=== PATIENT | male | born 1970 | race Caucasian/White ===

== ENCOUNTER 2018-04-08 03:24 | Emergency (ER) | payer SELFPAY ==
[2018-04-08 03:35] VITALS: BP 175/102
[2018-04-08] MEDS ORDERED: cefTRIAXone 1 GM Vial IM ONE (03:45)
[2018-04-08] MEDS ORDERED: Acetaminophen/oxyCODONE 325-5 MG Tab PO ONE (03:45)
[2018-04-08] MEDS ORDERED: Lidocaine 1% 20 ML MDV ONE (03:48)
--- NOTE | 2018-04-08 03:51 | EDM.PDOC ---
ED HPI GENERAL MEDICAL PROBLEM - General Chief Complaint: General Stated Complaint: pimple on testicle Time Seen by Provider: 04/08/18 03:45 Source of Information: Reports: Patient History Limitations: Reports: No Limitations - History of Present Illness INITIAL COMMENTS - FREE TEXT/NARRATIVE: Patient is a 47-year-old gentleman who presents to the emergency department this morning with a complaint of testicular pain. Patient states that he noticed a small pimple 3 days ago on his scrotum and squeezed it. Unable to get any discharge seemed to be enlarging, so he squeezed it again today. Pain became worse and he presented to the emergency department. Patient denies fever , nausea, vomiting, diarrhea, dysuria, abdominal pain, trauma to the testicles, or any history of testicular issues in the past. Onset: Gradual Quality: Reports: Ache Severity: Moderate Improves with: Reports: None Worsens with: Reports: Movement Associated Symptoms: Reports: No Other Symptoms Testicles Pain Score (Numeric/FACES): 10 - Related Data Allergies Allergy/AdvReac Type Severity Reaction Status Date / Time No Known Drug Allergies Allergy Cannot Verified 04/08/18 03:36 Remember Home Meds: Home Meds Sulfamethoxazole/Trimethoprim [Bactrim Ds Tablet] 1 each PO BID #20 tablet 04/08 [Rx] Past Medical History - Past Health History Medical/Surgical History: Denies Medical/Surgical History Endocrine/Metabolic History: Reports: Diabetes, Type II Social & Family History - Tobacco Use Smoking Status *Q: Current Every Day Smoker Years of Tobacco use: 20 Packs/Tins Daily: 0.5 Second Hand Smoke Exposure: No - Caffeine Use Caffeine Use: Reports: Coffee, Energy Drinks, Soda - Alcohol Use Days Per Week of Alcohol Use: 1 Number of Drinks Per Day: 2 Total Drinks Per Week: 2 - Recreational Drug Use Recreational Drug Use: No ED ROS GENERAL - Review of Systems Review Of Systems: ROS reveals no pertinent complaints other than HPI. Constitutional: Reports: No Symptoms HEENT: Reports: No Symptoms Respiratory: Reports: No Symptoms Cardiovascular: Reports: No Symptoms Endocrine: Reports: No Symptoms GI/Abdominal: Reports: No Symptoms : Reports: Other (Scrotal pain.) Musculoskeletal: Reports: No Symptoms Skin: Reports: Other (Mass on scrotum) Neurological: Reports: No Symptoms Psychiatric: Reports: No Symptoms Hematologic/Lymphatic: Reports: No Symptoms Immunologic: Reports: No Symptoms ED EXAM, GENERAL - Physical Exam Exam: See Below Exam Limited By: No Limitations General Appearance: Alert, WD/WN, No Apparent Distress Throat/Mouth: Normal Inspection, Normal Oropharynx, No Airway Compromise Head: Atraumatic, Normocephalic Respiratory/Chest: No Respiratory Distress GI/Abdominal: Normal Bowel Sounds, Soft, Non-Tender Back Exam: Normal Inspection. No: CVA Tenderness (L), CVA Tenderness (R) Extremities: Normal Inspection Neurological: Alert, Oriented, Normal Cognition Psychiatric: Normal Affect, Normal Mood Skin Exam: Warm, Dry, Intact, Normal Color, No Rash, Other (Scrotal mass measuring 1.5 cm oval with central punctum. No testicular tenderness, or epididymal tenderness.) Lymphatic: No Adenopathy (Inguinal) Course - Vital Signs Last Recorded V/S: Last Vital Signs Temp 98.5 F 04/08/18 03:32 Pulse 95 04/08/18 03:32 Resp 20 04/08/18 03:32 BP 175/102 H 04/08/18 03:32 Pulse Ox 97 04/08/18 03:32 - Orders/Labs/Meds Orders: Active Orders 24 hr Category Date Time Status Acetaminophen/oxyCODONE [Percocet 325-5 MG] Med 04/08/18 03:45 Once 2 tab PO ONETIME ONE cefTRIAXone [Rocephin] Med 04/08/18 03:45 Once 1 gm IM ONETIME ONE - Re-Assessments/Exams Free Text/Narrative Re-Assessment/Exam: 04/08/18 03:51 Patient afebrile, nontoxic appearing, vital signs stable. Patient given 1 g IM Rocephin, Percocet, and prescription for Bactrim. Ultrasound is not available at this time for evaluation of scrotal mass to differentiate infectious process versus other etiology. It is recommended to the patient that he present to [facility] tomorrow to see if ultrasound is available, or present to emergency department at [facility] for further evaluation. Departure - Departure Time of Disposition: 03:54 Disposition: Home, Self-Care 01 Condition: Good Clinical Impression: Scrotal abscess - Discharge Information Instructions: Skin Abscess, [id number], Scrotal Masses Referrals: Sona Ghotra MD [Physician] - Additional Instructions: Follow-up at [facility] tomorrow. If unable to get ultrasound performed then proceeded to [facility] in [place] for evaluation. Return to emergency department if other options are not available. - My Orders Last 24 Hours: My Active Orders 04/08/18 03:45 Acetaminophen/oxyCODONE [Percocet 325-5 MG] 2 tab PO ONETIME ONE cefTRIAXone [Rocephin] 1 gm IM ONETIME ONE - Assessment/Plan Last 24 Hours: My Active Orders 04/08/18 03:45 Acetaminophen/oxyCODONE [Percocet 325-5 MG] 2 tab PO ONETIME ONE cefTRIAXone [Rocephin] 1 gm IM ONETIME ONE Assessment:: Scrotal mass Plan: Follow-up at [facility]
== END 2018-04-08 04:03 | disposition home or self-care (01) ==
LOC: KA.ED 03:24
DX: N49.2 Inflammatory disorders of scrotum (principal); E11.9 Type 2 diabetes mellitus without complications; F17.210 Nicotine dependence, cigarettes, uncomplicated
CPT/HCPCS: 96372; 99282; A9270-GY; J0696

== ENCOUNTER 2019-07-13 12:03 | Observation (INO) | payer MEDICAID ==
[2019-07-13] MEDS ORDERED: Piperacillin/Tazobactam/Dext 3.375 GM in Premix Bag 1 BAG IV SCH (13:00)
[2019-07-13] MEDS ORDERED: Ibuprofen 600 MG Tab PO PRN (13:12)
[2019-07-13 13:35] LABS: ANION GAP 15.6 mmol/L (5-15); CHLORIDE,CL 97 mmol/L (98-115); SODIUM,NA 133 mmol/L (136-145)
--- NOTE | 2019-07-13 13:40 | CR ---
[id number] RAD/RAD Chest PA And Lateral EXAM: RAD Chest PA And Lateral CLINICAL DATA: TACHYCARDIA COMPARISON: No previous similar exam is available. FINDINGS: The lungs are clear. The cardiomediastinal contour is normal. The regional bones and soft tissues are unremarkable. IMPRESSION: NO ACUTE PROCESS. Mustapha Cannon MD 07/13/19 [id number] Thank you for allowing us to participate in the care of your patient.
[2019-07-13] MEDS: Insulin Aspart 100 Units/ML 3 ML Pen SUBCUT SCH ×3 (13:43→21:36)
[2019-07-13] MEDS: Sodium Chloride 0.9% 1,000 ML IV SCH ×2 (14:48→21:50)
[2019-07-13] MEDS: Piperacillin/Tazobactam/Dext 3.375 GM in Premix Bag 1 BAG IV SCH ×2 (14:52→21:33)
[2019-07-13] MEDS: prednisoLONE Acetate 1% Ophth Susp 5 ML Bottle EYERT SCH ×3 (15:01→21:36)
[2019-07-13] MEDS: Nicotine 21 MG/24 Hr Patch TRDERM SCH (16:41)
[2019-07-13] MEDS: metFORMIN 500 MG Tab PO SCH (18:15)
[2019-07-13] MEDS: traMADol 50 MG Tab PO PRN (19:05)
[2019-07-13] MEDS ORDERED: Timolol Maleate 0.5% Ophth Soln 5 ML Bottle EYERT SCH (21:00)
[2019-07-13] MEDS ORDERED: Atropine 1% Ophth Soln 5 ML BOTTLE EYERT SCH (21:00)
[2019-07-14] MEDS: prednisoLONE Acetate 1% Ophth Susp 5 ML Bottle EYERT SCH ×6 (02:09→20:28)
[2019-07-14] MEDS: Piperacillin/Tazobactam/Dext 3.375 GM in Premix Bag 1 BAG IV SCH ×4 (02:54→20:25)
[2019-07-14] MEDS: Sodium Chloride 0.9% 1,000 ML IV SCH ×3 (04:22→20:23)
[2019-07-14] MEDS: traMADol 50 MG Tab PO PRN ×3 (06:19→22:04)
[2019-07-14] MEDS ORDERED: prednisoLONE Acetate 1% Ophth Susp 5 ML Bottle EYERT SCH (08:00)
[2019-07-14 08:08] LABS: ANION GAP 13.7 mmol/L (5-15); CHLORIDE,CL 101 mmol/L (98-115); SODIUM,NA 136 mmol/L (136-145)
[2019-07-14] MEDS: Insulin Aspart 100 Units/ML 3 ML Pen SUBCUT SCH ×6 (08:09→22:15)
[2019-07-14] MEDS: metFORMIN 500 MG Tab PO SCH ×2 (08:27→18:20)
[2019-07-14] MEDS: Nicotine 21 MG/24 Hr Patch TRDERM SCH (08:43)
[2019-07-14] MEDS: ATROPINE 1% EYERT SCH (08:46)
[2019-07-14] MEDS: Timolol Maleate 0.5% Ophth Soln 5 ML Bottle**OWN MED EYERT SCH ×2 (08:51→20:50)
[2019-07-14] MEDS: BRIMONIDINE 0.2% EYERT SCH ×2 (08:56→20:40)
[2019-07-14] MEDS ORDERED: ATROPINE 1% EYERT SCH (09:00)
[2019-07-14] MEDS ORDERED: Timolol Maleate 0.5% Ophth Soln 5 ML Bottle**OWN MED EYERT SCH (09:00)
[2019-07-14] MEDS ORDERED: BRIMONIDINE 0.2% EYERT SCH (09:00)
[2019-07-14] MEDS ORDERED: Atropine 1% Ophth Soln 5 ML BOTTLE EYERT SCH (09:00)
[2019-07-14] MEDS ORDERED: cefTRIAXone 1 GM Vial IVPUSH SCH (10:00)
--- NOTE | 2019-07-14 11:12 | PCM.PN ---
- General Info Date of Service: 07/14/19 Functional Status: Reports: Pain Controlled, Tolerating Diet. Denies: New Symptoms - Review of Systems General: Denies: Fever HEENT: Reports: No Symptoms Pulmonary: Reports: No Symptoms Cardiovascular: Reports: No Symptoms Gastrointestinal: Reports: No Symptoms Genitourinary: Reports: No Symptoms Musculoskeletal: Reports: No Symptoms Skin: Reports: Other (rectal abscess draining) Neurological: Reports: No Symptoms - Patient Data Vitals - Most Recent: Last Vital Signs Temp 97.7 F 07/14/19 06:59 Pulse 92 07/14/19 06:59 Resp 20 07/14/19 06:59 BP 134/85 07/14/19 06:59 Pulse Ox 95 07/14/19 06:59 Weight - Most Recent: 240 lb 11.2 oz I&O - Last 24 Hours: Intake & Output 07/13/19 07/14/19 07/14/19 22:59 06:59 14:59 Intake Total 1603 1733 Balance 1603 1733 Lab Results Last 24 Hours: Laboratory Results - last 24 hr 07/13/19 07/13/19 07/13/19 Range/Units 12:33 13:05 13:05 WBC 23.42 H (5.00-10.00) 10^3/uL RBC 4.74 (4.50-6.00) 10^6/uL Hgb 15.4 (13.0-17.0) g/dL Hct 43.1 (40.0-52.0) % MCV 90.9 (82.0-92.0) fL MCH 32.5 H (27.0-31.0) pg MCHC 35.7 (32.0-36.0) g/dL RDW 11.9 (11.5-14.5) % Plt Count 271 (150-400) 10^3/uL MPV 9.0 (7.4-10.4) fL Immature Gran % (Auto) (0.0-5.0) % Neut % (Auto) (50.0-70.0) % Lymph % (Auto) (20.0-40.0) % [place] % (Auto) (2.0-8.0) % Eos % (Auto) (1.0-3.0) % Baso % (Auto) (0.0-1.0) % Immature Gran # (Auto) (0.00-0.50) 10^3/uL Neut # (Auto) (2.50-7.00) 10^3/uL Lymph # (Auto) (1.00-4.00) 10^3/uL [place] # (Auto) (0.10-0.80) 10^3/uL Eos # (Auto) (0.10-0.30) 10^3/uL Baso # (Auto) (0.00-0.10) 10^3/uL Add Manual Diff Yes Neutrophils % (Manual) 83 H (50-70) % Band Neutrophils % 10 (4-12) % Lymphocytes % (Manual) 6 L (20-40) % Monocytes % (Manual) 1 L (2-8) % Absolute Neutrophils 19.44 Band Neutrophils # 2.34 Lymphocytes # (Manual) 1.41 Monocytes # (Manual) 0.23 Sodium 133 L (136-145) mmol/L Potassium 3.8 (3.3-5.3) mmol/L Chloride 97 L (98-115) mmol/L Carbon Dioxide 24.2 (21.0-32.0) mmol/L Anion Gap 15.6 H (5-15) mmol/L BUN 10 (6-25) mg/dL Creatinine 0.66 (0.51-1.17) mg/dL Est Cr Clr Drug Dosing TNP Estimated GFR (MDRD) > 60 mL/min Glucose 310 H (75 - 99) mg/dL POC Glucose 262 H (74-106) mg/dl Lactic Acid (0.4-2.0) mmol/L Calcium 8.9 (8.7-10.3) mg/dL Total Bilirubin 1.2 H (0.2-1.0) mg/dL AST 23 (15-37) U/L ALT 33 (12-78) U/L Alkaline Phosphatase 98 (46-116) IU/L Total Protein 6.7 (6.4-8.2) g/dL Albumin 3.13 (3.00-4.80) g/dL 07/13/19 07/13/19 07/13/19 Range/Units 13:05 18:07 21:32 WBC (5.00-10.00) 10^3/uL RBC (4.50-6.00) 10^6/uL Hgb (13.0-17.0) g/dL Hct (40.0-52.0) % MCV (82.0-92.0) fL MCH (27.0-31.0) pg MCHC (32.0-36.0) g/dL RDW (11.5-14.5) % Plt Count (150-400) 10^3/uL MPV (7.4-10.4) fL Immature Gran % (Auto) (0.0-5.0) % Neut % (Auto) (50.0-70.0) % Lymph % (Auto) (20.0-40.0) % [place] % (Auto) (2.0-8.0) % Eos % (Auto) (1.0-3.0) % Baso % (Auto) (0.0-1.0) % Immature Gran # (Auto) (0.00-0.50) 10^3/uL Neut # (Auto) (2.50-7.00) 10^3/uL Lymph # (Auto) (1.00-4.00) 10^3/uL [place] # (Auto) (0.10-0.80) 10^3/uL Eos # (Auto) (0.10-0.30) 10^3/uL Baso # (Auto) (0.00-0.10) 10^3/uL Add Manual Diff Neutrophils % (Manual) (50-70) % Band Neutrophils % (4-12) % Lymphocytes % (Manual) (20-40) % Monocytes % (Manual) (2-8) % Absolute Neutrophils Band Neutrophils # Lymphocytes # (Manual) Monocytes # (Manual) Sodium (136-145) mmol/L Potassium (3.3-5.3) mmol/L Chloride (98-115) mmol/L Carbon Dioxide (21.0-32.0) mmol/L Anion Gap (5-15) mmol/L BUN (6-25) mg/dL Creatinine (0.51-1.17) mg/dL Est Cr Clr Drug Dosing Estimated GFR (MDRD) mL/min Glucose (75 - 99) mg/dL POC Glucose 253 H 170 H (74-106) mg/dl Lactic Acid 2.7 H (0.4-2.0) mmol/L Calcium (8.7-10.3) mg/dL Total Bilirubin (0.2-1.0) mg/dL AST (15-37) U/L ALT (12-78) U/L Alkaline Phosphatase (46-116) IU/L Total Protein (6.4-8.2) g/dL Albumin (3.00-4.80) g/dL 07/14/19 07/14/19 07/14/19 Range/Units 07:25 07:25 07:57 WBC 14.69 H (5.00-10.00) 10^3/uL RBC 4.33 L (4.50-6.00) 10^6/uL Hgb 14.4 (13.0-17.0) g/dL Hct 39.8 L (40.0-52.0) % MCV 91.9 (82.0-92.0) fL MCH 33.3 H (27.0-31.0) pg MCHC 36.2 H (32.0-36.0) g/dL RDW 12.0 (11.5-14.5) % Plt Count 250 (150-400) 10^3/uL MPV 9.0 (7.4-10.4) fL Immature Gran % (Auto) 0.2 (0.0-5.0) % Neut % (Auto) 80.8 H (50.0-70.0) % Lymph % (Auto) 11.5 L (20.0-40.0) % [place] % (Auto) 5.5 (2.0-8.0) % Eos % (Auto) 1.8 (1.0-3.0) % Baso % (Auto) 0.2 (0.0-1.0) % Immature Gran # (Auto) 0.03 (0.00-0.50) 10^3/uL Neut # (Auto) 11.87 H (2.50-7.00) 10^3/uL Lymph # (Auto) 1.69 (1.00-4.00) 10^3/uL [place] # (Auto) 0.81 H (0.10-0.80) 10^3/uL Eos # (Auto) 0.26 (0.10-0.30) 10^3/uL Baso # (Auto) 0.03 (0.00-0.10) 10^3/uL Add Manual Diff Neutrophils % (Manual) (50-70) % Band Neutrophils % (4-12) % Lymphocytes % (Manual) (20-40) % Monocytes % (Manual) (2-8) % Absolute Neutrophils Band Neutrophils # Lymphocytes # (Manual) Monocytes # (Manual) Sodium 136 (136-145) mmol/L Potassium 4.0 (3.3-5.3) mmol/L Chloride 101 (98-115) mmol/L Carbon Dioxide 25.3 (21.0-32.0) mmol/L Anion Gap 13.7 (5-15) mmol/L BUN 6 (6-25) mg/dL Creatinine 0.63 (0.51-1.17) mg/dL Est Cr Clr Drug Dosing 168.53 Estimated GFR (MDRD) > 60 mL/min Glucose 170 H (75 - 99) mg/dL POC Glucose 151 H (74-106) mg/dl Lactic Acid (0.4-2.0) mmol/L Calcium 8.4 L (8.7-10.3) mg/dL Total Bilirubin 0.8 (0.2-1.0) mg/dL AST 32 (15-37) U/L ALT 46 (12-78) U/L Alkaline Phosphatase 86 (46-116) IU/L Total Protein 6.1 L (6.4-8.2) g/dL Albumin 2.67 L (3.00-4.80) g/dL Med Orders - Current: Current Medications Ceftriaxone Sodium (Rocephin) 1 gm IVPUSH Q24H [facility] Sodium Chloride (Normal Saline) 1,000 mls @ 150 mls/hr IV ASDIRECTED [facility] Last Admin: 07/14/19 04:22 Dose: 150 mls/hr Piperacillin/Tazobactam/ (Dextrose 3.375 gm/ Premix) 50 mls @ 100 mls/hr IV Q6H [facility] Last Admin: 07/14/19 08:33 Dose: 100 mls/hr Ibuprofen (Motrin) 600 mg PO Q6H PRN PRN Reason: Pain/Fever Insulin Aspart (Novolog) 0 unit SUBCUT WITHMEALSANDBED [facility]; Protocol Last Admin: 07/14/19 08:09 Dose: Not Given Metformin HCl (Glucophage) 1,000 mg PO BIDMEALS [facility] Last Admin: 07/14/19 08:27 Dose: 1,000 mg Nicotine (Habitrol) 21 mg TRDERM DAILY [facility] Last Admin: 07/14/19 08:43 Dose: Not Given Atropine 1% Ophth Soln 5 Ml Bottle Own Med 0 each EYERT DAILY [facility] Last Admin: 07/14/19 08:46 Dose: 1 each Timolol Maleate 0.5% Ophth Soln 5 Ml BottleOwn Med 0 each EYERT BID [facility] Last Admin: 07/14/19 08:51 Dose: 1 each Brimonidine 0.2% Ophth Soln 15 Ml BottleOwn Med 0 each EYERT BID [facility] Last Admin: 07/14/19 08:56 Dose: 1 each Prednisolone Acetate (Pred Forte 1% Ophth Susp) 0 ml EYERT 0800,1200,1600,2000 [facility] Last Admin: 07/14/19 08:30 Dose: 1 drop Tramadol HCl (Ultram) 50 mg PO Q6H PRN PRN Reason: Pain Last Admin: 07/14/19 06:19 Dose: 50 mg Discontinued Medications Atropine Sulfate (Atropine 1% Ophth Soln) 0 ml EYERT BID [facility] Atropine Sulfate (Atropine 1% Ophth Soln) 1 ml EYERT DAILY [facility] Atropine Sulfate (Atropine 1% Ophth Soln) 0 ml EYERT DAILY [facility] Brimonidine Tartrate (Brimonidine Tartrate 0.2% Ophth Soln) 0 ml EYERT BID [facility] Doxycycline Hyclate (Vibramycin) 100 mg PO BID [facility] Last Admin: 07/14/19 09:16 Dose: Not Given Piperacillin/Tazobactam/ (Dextrose 3.375 gm/ Premix) 50 mls @ 100 mls/hr IV Q6H [facility] Last Admin: 07/13/19 15:22 Dose: Not Given Prednisolone Acetate (Pred Forte 1% Ophth Susp) 0 ml EYERT Q4H [facility] Last Admin: 07/14/19 06:11 Dose: Not Given Prednisolone Acetate (Pred Forte 1% Ophth Susp) 0 ml EYERT Q4H [facility] Last Admin: 07/14/19 08:57 Dose: Not Given Timolol Maleate (Timoptic 0.5% Ophth Soln) 0 ml EYERT BID [facility] Last Admin: 07/13/19 21:45 Dose: 1 drop Timolol Maleate (Timoptic 0.5% Ophth Soln) 0 ml EYERT BID CRISTIN - Exam Quality Assessment: No: Supplemental Oxygen General: Alert, Oriented, Cooperative, No Acute Distress Lungs: Clear to Auscultation, Normal Respiratory Effort Cardiovascular: Regular Rate, Regular Rhythm Skin: Other (Drainage rectal abcess, nontender induration 3 o'clock position) - Problem List Review Problem List Initiated/Reviewed/Updated: Yes - Plan Plan:: brief history/prehospital course 48 y/o male and was admitted from [facility] for IV antibiotics status post I&D. patient initially presented with painful lump to his right upper buttocks. Although he denied home fevers, he did admit to rigors and chills. Patient with hx of abscess to his scrotum ~ 2 years ago that was also drained. he is a type 2 diabetic and a smoker. Upon initial I&D wound culture was obtained, 1g of ceftriaxone prior to admission and BC were drawn upon arrival. He was started on broad-spectrum antibiotics, mild lactate elevation, BP/MAP good, no fevers, WBC relation with neutrophilia. ultrasound 4.4 cm maximum diameter complex heterogeneous collection within the subcutaneous tissues in the right medial buttock. Differential diagnosis includes phlegmon/abscess and less likely hematoma. There is no sonographic evidence of a tract to suggest fistula. update overnight WBC rending down, neutrophils 80%, feels much better, strongly desires to be discharged, wound culture insufficient growth after overnight incubation, Culture was re-incubated. Primary hospital problems Rectal abscess, s/p drainage, sepsis, T2DM, co-Morbid, immunocompromising, A1c 10.6% March/2018, metformin tobacco dependency, non-contemplate change, delayed wound healing risk, BMI 33% disposition/overall plan --patient reluctantly agreed to stay for further tx and OBS --continue broad abx therapy, --DC ceftriaxone --DC doxycycline --Sitz bath's --Hgb A1c to aid in DM outpatient mgt especially in light of current DOT medical card --ADD NovoLog 4 units CRISTIN prior to meal, then reduce ISS to low-dose and use as ADDITION corrective scale --tobacco cessation counseling, nicotine replacement therapy --anticipate discharge in a.m.
[2019-07-14 11:42] LABS: HEMOGLOBIN A1C 9.9 % (4.3-5.7)
[2019-07-15] MEDS: Piperacillin/Tazobactam/Dext 3.375 GM in Premix Bag 1 BAG IV SCH ×2 (02:37→08:01)
[2019-07-15] MEDS: Sodium Chloride 0.9% 1,000 ML IV SCH (04:32)
[2019-07-15] MEDS: metFORMIN 500 MG Tab PO SCH (07:58)
[2019-07-15] MEDS: prednisoLONE Acetate 1% Ophth Susp 5 ML Bottle EYERT SCH (07:58)
[2019-07-15] MEDS: Insulin Aspart 100 Units/ML 3 ML Pen SUBCUT SCH ×2 (07:59→08:04)
[2019-07-15] MEDS: ATROPINE 1% EYERT SCH (08:04)
[2019-07-15] MEDS: Nicotine 21 MG/24 Hr Patch TRDERM SCH (08:08)
[2019-07-15] MEDS: Timolol Maleate 0.5% Ophth Soln 5 ML Bottle**OWN MED EYERT SCH (08:10)
[2019-07-15] MEDS: BRIMONIDINE 0.2% EYERT SCH (08:15)
--- NOTE | 2019-07-15 11:07 | PCM.DCSUM1 ---
Discharge Summary - Hospital Course Free Text/Narrative:: Date of admission: 07/13/19 Date of discharge: 07/15/19 Admission diagnoses: # Perirectal abscess # Leukocytosis # Tachycardia # Rigors # DMT2 # Tobacco dependence Discharge diagnoses: # Perirectal abscess # Leukocytosis, resolved # Lactic acidosis, resolved # Tachycardia, resolved # Hyponatremia, resolved # Hyperbilirubinemia, resolved # DMT2, uncontrolled # Tobacco dependence Consultations: None Procedures: None Hospital course: Discharge and follow-up recommendations: - Discharge to home - New medications at discharge: - Augmentin 875-125mg BID x 10 days - Exenatide 2mg SQ weekly - Follow-up 07/19/[address] [facility] with Dallas Garg PA-C, as already scheduled - Discharge Data Discharge Date: 07/15/19 Discharge Disposition: Home, Self-Care 01 Condition: Good - Referral to Home Health Primary Care Physician: PCP None - Patient Instructions Diet: Diabetic Diet Activity: As Tolerated Showering/Bathing: May Shower Wound/Incision Care: Keep Operative Site/Wound Site Clean and Dry, Change Dressing Daily Notify Provider of: Fever, Increased Pain, Swelling and Redness Other/Special Instructions: - Augmentin 875/125mg twice daily for 10 days (sent to [employer] [facility] from [employer]). - Semgalutide (Ozempic) 0.25mg subcutaneous once weekly for 4 weeks, then 0.5mg subctuaneous once weekly (sent to [employer] [facility] from [employer]) - Discharge Plan *PRESCRIPTION DRUG MONITORING PROGRAM REVIEWED*: Yes *COPY OF PRESCRIPTION DRUG MONITORING REPORT IN PATIENT LINH: Yes Home Medications: Home Meds Atropine Sulfate [Isopto Atropine] 1 drop EYERT DAILY 07/13/19 [History] Brimonidine Tartrate [Brimonidine Tartrate 0.2% Ophth Soln] 1 drop EYERT BID 12/27 [History] Timolol Maleate 1 drop EYERT BID 07/13/19 [History] metFORMIN [Glucophage] 1,000 mg PO BIDMEALS 07/13/19 [History] prednisoLONE acetate [Pred Forte 1% Ophth Susp] 1 drop EYERT 0800,1200,1600, 2000 07/13/19 [History] Patient Handouts: Smoking Tobacco Information, Adult, Type 2 Diabetes Mellitus , Self Care, Adult, Perirectal Abscess Referrals: Dallas Garg PA-C [Physician Electric Truck Driver] - 07/19/19 4:30 pm (Already scheduled) - Discharge Summary/Plan Comment DC Time >30 min.: Yes - Patient Data Vitals - Most Recent: Last Vital Signs Temp 36.2 C 07/15/19 06:21 Pulse 79 07/15/19 06:21 Resp 14 07/15/19 06:21 BP 136/85 07/15/19 06:21 Pulse Ox 96 07/15/19 06:21 Weight - Most Recent: 109.18 kg I&O - Last 24 hours: Intake & Output 07/14/19 07/15/19 07/15/19 22:59 06:59 14:59 Intake Total 2299 1850 Balance 2299 1850 Lab Results - Last 24 hrs: Laboratory Results - last 24 hr 07/14/19 07/14/19 07/14/19 Range/Units 07:25 11:56 17:54 WBC (5.00-10.00) 10^3/uL RBC (4.50-6.00) 10^6/uL Hgb (13.0-17.0) g/dL Hct (40.0-52.0) % MCV (82.0-92.0) fL MCH (27.0-31.0) pg MCHC (32.0-36.0) g/dL RDW (11.5-14.5) % Plt Count (150-400) 10^3/uL MPV (7.4-10.4) fL Immature Gran % (Auto) (0.0-5.0) % Neut % (Auto) (50.0-70.0) % Lymph % (Auto) (20.0-40.0) % [place] % (Auto) (2.0-8.0) % Eos % (Auto) (1.0-3.0) % Baso % (Auto) (0.0-1.0) % Immature Gran # (Auto) (0.00-0.50) 10^3/uL Neut # (Auto) (2.50-7.00) 10^3/uL Lymph # (Auto) (1.00-4.00) 10^3/uL [place] # (Auto) (0.10-0.80) 10^3/uL Eos # (Auto) (0.10-0.30) 10^3/uL Baso # (Auto) (0.00-0.10) 10^3/uL POC Glucose 214 H 142 H (74-106) mg/dl Hemoglobin A1c 9.9 H (4.3-5.7) % Lactic Acid (0.4-2.0) mmol/L 07/14/19 07/15/19 07/15/19 Range/Units 22:02 07:00 07:00 WBC 9.62 (5.00-10.00) 10^3/uL RBC 4.56 (4.50-6.00) 10^6/uL Hgb 14.9 (13.0-17.0) g/dL Hct 41.9 (40.0-52.0) % MCV 91.9 (82.0-92.0) fL MCH 32.7 H (27.0-31.0) pg MCHC 35.6 (32.0-36.0) g/dL RDW 11.9 (11.5-14.5) % Plt Count 286 (150-400) 10^3/uL MPV 9.3 (7.4-10.4) fL Immature Gran % (Auto) 0.3 (0.0-5.0) % Neut % (Auto) 61.1 (50.0-70.0) % Lymph % (Auto) 24.4 (20.0-40.0) % [place] % (Auto) 10.2 H (2.0-8.0) % Eos % (Auto) 3.6 H (1.0-3.0) % Baso % (Auto) 0.4 (0.0-1.0) % Immature Gran # (Auto) 0.03 (0.00-0.50) 10^3/uL Neut # (Auto) 5.87 (2.50-7.00) 10^3/uL Lymph # (Auto) 2.35 (1.00-4.00) 10^3/uL [place] # (Auto) 0.98 H (0.10-0.80) 10^3/uL Eos # (Auto) 0.35 H (0.10-0.30) 10^3/uL Baso # (Auto) 0.04 (0.00-0.10) 10^3/uL POC Glucose 215 H (74-106) mg/dl Hemoglobin A1c (4.3-5.7) % Lactic Acid 1.0 (0.4-2.0) mmol/L 07/15/19 Range/Units 07:32 WBC (5.00-10.00) 10^3/uL RBC (4.50-6.00) 10^6/uL Hgb (13.0-17.0) g/dL Hct (40.0-52.0) % MCV (82.0-92.0) fL MCH (27.0-31.0) pg MCHC (32.0-36.0) g/dL RDW (11.5-14.5) % Plt Count (150-400) 10^3/uL MPV (7.4-10.4) fL Immature Gran % (Auto) (0.0-5.0) % Neut % (Auto) (50.0-70.0) % Lymph % (Auto) (20.0-40.0) % [place] % (Auto) (2.0-8.0) % Eos % (Auto) (1.0-3.0) % Baso % (Auto) (0.0-1.0) % Immature Gran # (Auto) (0.00-0.50) 10^3/uL Neut # (Auto) (2.50-7.00) 10^3/uL Lymph # (Auto) (1.00-4.00) 10^3/uL [place] # (Auto) (0.10-0.80) 10^3/uL Eos # (Auto) (0.10-0.30) 10^3/uL Baso # (Auto) (0.00-0.10) 10^3/uL POC Glucose 145 H (74-106) mg/dl Hemoglobin A1c (4.3-5.7) % Lactic Acid (0.4-2.0) mmol/L АННА Results - Last 24 hrs: Microbiology 07/13/19 13:25 Aerobic Blood Culture - Preliminary Blood - Venous - Lab Draw NO GROWTH AFTER 1 DAY Anaerobic Blood Culture - Preliminary NO GROWTH AFTER 1 DAY Med Orders - Current: Current Medications Sodium Chloride (Normal Saline) 1,000 mls @ 150 mls/hr IV ASDIRECTED [facility] Last Admin: 07/15/19 04:32 Dose: 150 mls/hr Piperacillin/Tazobactam/ (Dextrose 3.375 gm/ Premix) 50 mls @ 100 mls/hr IV Q6H [facility] Last Admin: 07/15/19 08:01 Dose: 100 mls/hr Ibuprofen (Motrin) 600 mg PO Q6H PRN PRN Reason: Pain/Fever Insulin Aspart (Novolog) 0 unit SUBCUT WITHMEALSANDBED [facility]; Protocol Last Admin: 07/15/19 07:59 Dose: Not Given Insulin Aspart (Novolog) 4 unit SUBCUT TIDMEALS [facility] Last Admin: 07/15/19 08:04 Dose: 4 units Metformin HCl (Glucophage) 1,000 mg PO BIDMEALS [facility] Last Admin: 07/15/19 07:58 Dose: 1,000 mg Nicotine (Habitrol) 21 mg TRDERM DAILY [facility] Last Admin: 07/15/19 08:08 Dose: Not Given Atropine 1% Ophth Soln 5 Ml Bottle Own Med 0 each EYERT DAILY [facility] Last Admin: 07/15/19 08:04 Dose: 1 each Timolol Maleate 0.5% Ophth Soln 5 Ml BottleOwn Med 0 each EYERT BID [facility] Last Admin: 07/15/19 08:10 Dose: 1 each Brimonidine 0.2% Ophth Soln 15 Ml BottleOwn Med 0 each EYERT BID [facility] Last Admin: 07/15/19 08:15 Dose: 1 each Prednisolone Acetate (Pred Forte 1% Ophth Susp) 0 ml EYERT 0800,1200,1600,2000 [facility] Last Admin: 07/15/19 07:58 Dose: 1 drop Tramadol HCl (Ultram) 50 mg PO Q6H PRN PRN Reason: Pain Last Admin: 07/14/19 22:04 Dose: 50 mg Discontinued Medications Atropine Sulfate (Atropine 1% Ophth Soln) 0 ml EYERT BID [facility] Atropine Sulfate (Atropine 1% Ophth Soln) 1 ml EYERT DAILY [facility] Atropine Sulfate (Atropine 1% Ophth Soln) 0 ml EYERT DAILY [facility] Brimonidine Tartrate (Brimonidine Tartrate 0.2% Ophth Soln) 0 ml EYERT BID [facility] Ceftriaxone Sodium (Rocephin) 1 gm IVPUSH Q24H [facility] Last Admin: 07/14/19 10:40 Dose: 1 gm Doxycycline Hyclate (Vibramycin) 100 mg PO BID [facility] Last Admin: 07/14/19 09:16 Dose: Not Given Piperacillin/Tazobactam/ (Dextrose 3.375 gm/ Premix) 50 mls @ 100 mls/hr IV Q6H [facility] Last Admin: 07/13/19 15:22 Dose: Not Given Prednisolone Acetate (Pred Forte 1% Ophth Susp) 0 ml EYERT Q4H [facility] Last Admin: 07/14/19 06:11 Dose: Not Given Prednisolone Acetate (Pred Forte 1% Ophth Susp) 0 ml EYERT Q4H [facility] Last Admin: 07/14/19 08:57 Dose: Not Given Timolol Maleate (Timoptic 0.5% Ophth Soln) 0 ml EYERT BID [facility] Last Admin: 07/13/19 21:45 Dose: 1 drop Timolol Maleate (Timoptic 0.5% Ophth Soln) 0 ml EYERT BID [facility]
[2019-07-15 11:51] VITALS: BP 138/76; PULSE 76
== END 2019-07-15 11:40 | disposition home or self-care (01) ==
LOC: KA.MS 12:03
PROVIDERS: ADMIT Physician Assistant; ATTEND Family Medicine
DX: K61.1 Rectal abscess (principal); E87.2 Acidosis; R00.0 Tachycardia, unspecified; E11.9 Type 2 diabetes mellitus without complications; E87.1 Hypo-osmolality and hyponatremia; E80.6 Other disorders of bilirubin metabolism; E66.9 Obesity, unspecified; F17.200 Nicotine dependence, unspecified, uncomplicated; H16.139 Photokeratitis, unspecified eye; Z68.33 Body mass index [BMI] 33.0-33.9, adult; Z79.84 Long term (current) use of oral hypoglycemic drugs
CPT/HCPCS: 36415; 71046; 80053; 82962; 83036; 83605; 85025; 87040; A9270; J0696; J1815; J2543; J7030; 96361; 96365; 96375; 96376; G0378; G0379

== ENCOUNTER 2020-06-12 14:56 | Emergency (ER) | payer SELFPAY ==
--- NOTE | 2020-06-12 15:14 | EDM.PDOC ---
<Bakari Frederick - Last Filed: 06/12/20 16:02> ED HPI GENERAL MEDICAL PROBLEM - General Chief Complaint: Neuro Symptoms/Deficits Stated Complaint: TONGUE/LIP L ARM NUMBNESS Time Seen by Provider: 06/12/20 15:12 Source of Information: Reports: Patient History Limitations: Reports: No Limitations - History of Present Illness INITIAL COMMENTS - FREE TEXT/NARRATIVE: Alfred, had a Covid 19 exposure, and was tested last Wednesday still awaiting results. He had traveled to the of his mother, stating he is under significant stress, and found out after returning that his sister was positive COVID-19. He states yesterday morning upon awakening he felt tingling to his left arm. He denies chest pain or shortness of breath with it but states it is been consistent since then. He also feels at times there is tingling in his lips and tongue but denies any speech or thought process issues. Yesterday he had a headache but it resolved spontaneously. He is uncertain of his diabetic control stating he has not been tested in months as he is due this fall for a complete work-up. Denies any hyper nor hypoglycemic events or symptoms. Onset Date: 06/11/20 Onset Time: 06:00 Duration: Hour(s): Location: Reports: Face, Upper Extremity, Left Quality: Reports: Other (tingling) Severity: Moderate Improves with: Reports: None Worsens with: Reports: Movement Context: Reports: Other Associated Symptoms: Reports: No Other Symptoms Treatments POLE CLIMBER: Reports: Other (see below) - Related Data Allergies Allergy/AdvReac Type Severity Reaction Status Date / Time No Known Drug Allergies Allergy Cannot Verified 04/08/18 03:36 Remember Home Meds: Home Meds metFORMIN [Glucophage] 1,000 mg PO BIDMEALS 07/13/19 [History] Dapagliflozin Propanediol [Farxiga] 10 mg PO DAILY 06/12/20 [History] atorvaSTATin Calcium [Atorvastatin Calcium] 10 mg PO DAILY 06/12/20 [History] Past Medical History - Past Health History Medical/Surgical History: Denies Medical/Surgical History HEENT History: Reports: Cataract, Impaired Vision, Retinal Detachment Other HEENT History: Right eye retinal detachment Cardiovascular History: Reports: None, High Cholesterol Respiratory History: Reports: None Gastrointestinal History: Reports: None Genitourinary History: Reports: None Musculoskeletal History: Reports: None, Fracture Neurological History: Reports: None Psychiatric History: Reports: None Endocrine/Metabolic History: Reports: Diabetes, Type II Hematologic History: Reports: None Immunologic History: Reports: None Oncologic (Cancer) History: Reports: None Dermatologic History: Reports: None - Infectious Disease History Infectious Disease History: Reports: None - Past Surgical History Head Surgeries/Procedures: Reports: None HEENT Surgical History: Reports: Cataract Surgery, Detached Retina Cardiovascular Surgical History: Reports: None Respiratory Surgical History: Reports: None GI Surgical History: Reports: None Male Surgical History: Reports: None Neurological Surgical History: Reports: None Musculoskeletal Surgical History: Reports: None Oncologic Surgical History: Reports: None Social & Family History - Family History Family Medical History: Noncontributory - Tobacco Use Smoking Status *Q: Current Every Day Smoker - Caffeine Use Caffeine Use: Reports: Coffee ED ROS GENERAL - Review of Systems Constitutional: Reports: No Symptoms HEENT: Reports: No Symptoms Respiratory: Reports: No Symptoms Cardiovascular: Reports: No Symptoms Endocrine: Reports: No Symptoms GI/Abdominal: Reports: No Symptoms : Reports: No Symptoms Musculoskeletal: Reports: Shoulder Pain Skin: Reports: No Symptoms Neurological: Reports: No Symptoms Psychiatric: Reports: No Symptoms Hematologic/Lymphatic: Reports: No Symptoms Immunologic: Reports: No Symptoms ED EXAM, GENERAL - Physical Exam Exam: See Below Free Text/Narrative:: Alert oriented with no cyanosis nor pallor, seated in the chair in the examination room. HEENT is negative discharge or deformity. 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 Scheduled to have upcoming roselia melvi in September again. Neck is soft supple with no lymphadenopathy, no JVD, I do not appreciate your carotid bruit. Percussion to the cervical spine does not induce any paresthesia. Thorax is clear with raspiness attributed to his smoking. Cardiac is regular S1-S2 no appreciated murmur. Abdomen is rotund no tenderness bowel sounds are present no hepatosplenomegaly appreciated. rectal is deferred. No edema to the extremities radial pulse correlates apical heart rate. Neuro examination is benign with facial symmetry noted, he is able to frown, smile, point his tongue, raises eyebrows and lower his eyebrows all symmetrical with no issues. Ocular exam is intact other than the hesitancy from his pinched nerve on the right. [id number], finger to my hand is intact. Dope Sprayer strength is strong and symmetrical. No pronator drift is noted. No weakness to positioning of the arms are noted. +1 reflexes symmetrical bilateral. Sensation to touch is intact to the upper extremities bilaterally. Heel Islas is intact bilateral. Planter flexion and dorsi flexion are symmetrical. Motion of the left upper extremity across the chest induces discomfort as well as change in sensation and tingling to the extremity. Discussed in detail with positioning his sleeping as well as his stress he is under stress with him stating that that could possibly be what is causing this. EKG INTERPRETATION EKG Date: 06/12/20 Time: 15:45 Rhythm: NSR [place]: Normal P-Wave: Present QRS: Normal ST-T: Normal QT: Normal Comparison: NA - No Prior EKG Departure - Departure Disposition: Home, Self-Care 01 Clinical Impression: Left arm numbness, Elevated troponin, CVA (cerebral vascular accident) - Discharge Information Instructions: Sensory Loss After a Stroke Referrals: Laura Eugene MD [Primary Care Provider] - Forms: ED Department Discharge Additional Instructions: [facility]800 schedule follow up appt. for , tell them Dr. Conley is aware and needs to see someone tomorrow. hold your metformin, do not take the metformin until directed by your doctor. Take full strength aspirin 325 mg by mouth with food once a day, please stop smoking, return to ED right away if you develop any new or changing symptoms. Have a very low threshold on returning and do not wait at home for symptoms to resolve if something would return. - Problem List & Annotations (1) Paresthesia and pain of left extremity SNOMED Code(s): 83596918 Code(s): M79.609 - PAIN IN UNSPECIFIED LIMB; R20.2 - PARESTHESIA OF SKIN Status: Acute Priority: High Current Visit: Yes (2) Shoulder pain, left SNOMED Code(s): 82412623, 32836169 Code(s): M25.512 - PAIN IN LEFT SHOULDER Status: Acute Priority: High Current Visit: Yes Qualifiers: Chronicity: acute Qualified Code(s): M25.512 - Pain in left shoulder - Problem List Review Problem List Initiated/Reviewed/Updated: Yes <Mil Angeles - Last Filed: 06/12/20 17:52> ED ROS GENERAL - Review of Systems Review Of Systems: See Below ED EXAM, GENERAL - Physical Exam Exam: See Below Course - Vital Signs Last Recorded V/S: Last Vital Signs Temp 98.3 F 06/12/20 16:37 Pulse 76 06/12/20 17:24 Resp 16 06/12/20 17:24 BP 144/90 H 06/12/20 17:24 Pulse Ox 97 06/12/20 17:24 - Orders/Labs/Meds Orders: Active Orders 24 hr Category Date Time Status EKG Documentation Completion [RC] ASDIRECTED Care 06/12/20 15:29 Active EKG Documentation Completion [RC] ASDIRECTED Care 06/12/20 17:42 Active Peripheral IV Care [RC] . DIRECTED Care 06/12/20 15:30 Active Sodium Chloride 0.9% [Normal Saline] 1,000 ml Med 06/12/20 15:30 Active IV ASDIRECTED Sodium Chloride 0.9% [Saline Flush] Med 06/12/20 15:30 Active 10 ml FLUSH Q8HR PRN Peripheral IV Insertion Adult [OM.PC] Routine Oth 06/12/20 15:30 Ordered EKG 12 Lead [EK] Stat Ther 06/12/20 17:40 Ordered EKG 12 Lead [EK] Urgent Ther 06/12/20 15:29 Ordered Medication Orders Sodium Chloride (Normal Saline) 1,000 mls @ 500 mls/hr IV ASDIRECTED [facility] Last Admin: 06/12/20 16:10 Dose: 500 mls/hr Documented by: MALEKAT Sodium Chloride (Saline Flush) 10 ml FLUSH Q8HR PRN PRN Reason: keep vein open Labs: Laboratory Tests 06/12/20 06/12/20 06/12/20 Range/Units 15:35 15:35 15:35 WBC 12.98 H (5.00-10.00) 10^3/uL RBC 5.34 (4.50-6.00) 10^6/uL Hgb 16.7 D (13.0-17.0) g/dL Hct 49.3 (40.0-52.0) % MCV 92.3 H (82.0-92.0) fL MCH 31.3 H (27.0-31.0) pg MCHC 33.9 (32.0-36.0) g/dL RDW 12.4 (11.5-14.5) % Plt Count 333 (150-400) 10^3/uL MPV 9.2 (7.4-10.4) fL Immature Gran % (Auto) 0.2 (0.0-5.0) % Neut % (Auto) 60.4 (50.0-70.0) % Lymph % (Auto) 31.0 (20.0-40.0) % [place] % (Auto) 5.9 (2.0-8.0) % Eos % (Auto) 2.3 (1.0-3.0) % Baso % (Auto) 0.2 (0.0-1.0) % Neut # (Auto) 7.82 H (2.50-7.00) 10^3/uL Lymph # (Auto) 4.03 H (1.00-4.00) 10^3/uL [place] # (Auto) 0.77 (0.10-0.80) 10^3/uL Eos # (Auto) 0.30 (0.10-0.30) 10^3/uL Baso # (Auto) 0.03 (0.00-0.10) 10^3/uL Immature Gran # (Auto) 0.03 (0.00-0.50) 10^3/uL PT (9.2-11.2) SEC INR (0.9-1.1) APTT (22.8-31.4) SEC D-Dimer, Quantitative < 100 (<400) ng/mL Sodium 135 L (136-145) mmol/L Potassium 3.7 (3.3-5.3) mmol/L Chloride 100 (98-115) mmol/L Carbon Dioxide 23.2 (21.0-32.0) mmol/L Anion Gap 15.5 H (5-15) mmol/L BUN 8 (6-25) mg/dL Creatinine 0.67 (0.51-1.17) mg/dL Est Cr Clr Drug Dosing 152.38 mL/min Estimated GFR (MDRD) > 60 mL/min Glucose 276 H (75 - 99) mg/dL Lactic Acid (0.4-2.0) mmol/L Calcium 8.7 (8.7-10.3) mg/dL Total Bilirubin 0.4 (0.2-1.0) mg/dL AST 21 (15-37) U/L ALT 43 (12-78) U/L Alkaline Phosphatase 96 (46-116) IU/L Creatine Kinase 9 L (26-276) U/L CK-MB (CK-2) 0.80 (0.00-4.30) ng/mL Troponin I 0.08 H* (0.00-0.070) ng/mL Total Protein 7.0 (6.4-8.2) g/dL Albumin 3.64 (3.00-4.80) g/dL COVID-19 (LEW) (NEGATIVE) 06/12/20 06/12/20 06/12/20 Range/Units 15:35 15:40 16:45 WBC (5.00-10.00) 10^3/uL RBC (4.50-6.00) 10^6/uL Hgb (13.0-17.0) g/dL Hct (40.0-52.0) % MCV (82.0-92.0) fL MCH (27.0-31.0) pg MCHC (32.0-36.0) g/dL RDW (11.5-14.5) % Plt Count (150-400) 10^3/uL MPV (7.4-10.4) fL Immature Gran % (Auto) (0.0-5.0) % Neut % (Auto) (50.0-70.0) % Lymph % (Auto) (20.0-40.0) % [place] % (Auto) (2.0-8.0) % Eos % (Auto) (1.0-3.0) % Baso % (Auto) (0.0-1.0) % Neut # (Auto) (2.50-7.00) 10^3/uL Lymph # (Auto) (1.00-4.00) 10^3/uL [place] # (Auto) (0.10-0.80) 10^3/uL Eos # (Auto) (0.10-0.30) 10^3/uL Baso # (Auto) (0.00-0.10) 10^3/uL Immature Gran # (Auto) (0.00-0.50) 10^3/uL PT 10.1 (9.2-11.2) SEC INR 1.0 (0.9-1.1) APTT 30.1 (22.8-31.4) SEC D-Dimer, Quantitative (<400) ng/mL Sodium (136-145) mmol/L Potassium (3.3-5.3) mmol/L Chloride (98-115) mmol/L Carbon Dioxide (21.0-32.0) mmol/L Anion Gap (5-15) mmol/L BUN (6-25) mg/dL Creatinine (0.51-1.17) mg/dL Est Cr Clr Drug Dosing mL/min Estimated GFR (MDRD) mL/min Glucose (75 - 99) mg/dL Lactic Acid 3.1 H (0.4-2.0) mmol/L Calcium (8.7-10.3) mg/dL Total Bilirubin (0.2-1.0) mg/dL AST (15-37) U/L ALT (12-78) U/L Alkaline Phosphatase (46-116) IU/L Creatine Kinase (26-276) U/L CK-MB (CK-2) (0.00-4.30) ng/mL Troponin I (0.00-0.070) ng/mL Total Protein (6.4-8.2) g/dL Albumin (3.00-4.80) g/dL COVID-19 (LEW) Negative (NEGATIVE) Meds: Medications Generic Name Dose Route Start Last Admin Trade Name Freq PRN Reason Stop Dose Admin Sodium Chloride 1,000 mls @ 500 mls/hr 06/12/20 15:30 06/12/20 16:10 Normal Saline IV 500 mls/hr ASDIRECTED CRISTIN Administration Sodium Chloride 10 ml 06/12/20 15:30 Saline Flush FLUSH Q8HR PRN keep vein open Discontinued Medications Generic Name Dose Route Start Last Admin Trade Name Freq PRN Reason Stop Dose Admin Aspirin 324 mg 06/12/20 17:12 06/12/20 17:21 Aspirin PO 06/12/20 17:13 324 mg ONETIME ONE Administration Atorvastatin Calcium 10 mg 06/12/20 17:12 06/12/20 17:18 Lipitor PO 06/12/20 17:13 Not Given ONETIME ONE - Re-Assessments/Exams Free Text/Narrative Re-Assessment/Exam: 06/12/20 16:35 I accepted care from [facility] now, elevated troponin, just found out negative for covid 19, pt was sent to chest xray. I went into assess patient, he notes having left sided tongue numbness and left upper and bottom lip numbness starting yesterday morning when he woke up at 0700. at 0800, he lit up a cigarette, developed a sudden onset 8/10 headache all day until he went to sleep at 12 pm that night. He has never had this type of headache before, it was severe and sudden. He took [address] with no relief[address] head order stat, aspirin ordered, lipitor he took this am. consulted [facility] [employer] superintendent Dr. Conley. 06/12/20 17:08 repeated neuro exam, no motor function loss, no visual deficits, he does have right eye diplopia, that is his baseline, neg. Romberg , stroke scale 1 for partial loss of sensory, heart score 4 pt. no cp or sob, no viral uri symptoms. BP is 146/92 pulse 87, sp o2 96%. No headache. holding metformin lactic acid 3.1. 06/12/20 17:20 Free Text/Narrative Re-Assessment/Exam: 06/12/20 17:44 I repeated the EKG no signs of STEMI or ST changes or T wave inversion, consulted Dr. Conley after CT head negative report came back. Patient kindly refuses admission despite stressing the importance. He has no motor weakness, I repeated stroke assessment, he does have 1 pt with sensory partial loss, with his upper and bottom left side of his tongue and lips are numb. No weakness to that aspect. No headache, no CP or SOB. Patient was told entire risks for him going instead being admitted for close observation. Such as worsening of stroke, life long paralysis, or even . Patient [place] two blocks from the hospital, he understands to have a low threshold on returning for new or change or worsening of symptoms. he is gong to have close f/u tomorrow am with his PCP at the [facility]. Departure - Departure Time of Disposition: 17:42 Condition: Good - Discharge Information *PRESCRIPTION DRUG MONITORING PROGRAM REVIEWED*: No *COPY OF PRESCRIPTION DRUG MONITORING REPORT IN PATIENT LINH: No Sepsis Event Note (ED) - Focused Exam Vital Signs: Vital Signs Temp Pulse Resp BP Pulse Ox 06/12/20 17:24 76 16 144/90 H 97 06/12/20 16:56 14 146/92 H 97 06/12/20 16:47 92 153/94 H 97 06/12/20 16:37 98.3 F 92 16 146/91 H 94 L 06/12/20 16:15 101 H 162/99 H 96 06/12/20 16:00 99 151/94 H 92 L 06/12/20 15:45 98 16 165/101 H 94 L 06/12/20 15:15 97.7 F 102 H 18 151/98 H 96 - My Orders Last 24 Hours: My Active Orders 06/12/20 17:40 EKG 12 Lead [EK] Stat 06/12/20 17:42 EKG Documentation Completion [RC] ASDIRECTED - Assessment/Plan Last 24 Hours: My Active Orders 06/12/20 17:40 EKG 12 Lead [EK] Stat 06/12/20 17:42 EKG Documentation Completion [RC] ASDIRECTED
[2020-06-12] MEDS ORDERED: Sodium Chloride 0.9% 10 ML Syringe FLUSH PRN (15:30)
[2020-06-12] MEDS ORDERED: Sodium Chloride 0.9% 1,000 ML IV SCH (15:30)
[2020-06-12 16:17] LABS: ANION GAP 15.5 mmol/L (5-15); CHLORIDE,CL 100 mmol/L (98-115); SODIUM,NA 135 mmol/L (136-145)
--- NOTE | 2020-06-12 16:49 | CR ---
[id number] RAD/RAD Chest PA And Lateral EXAM: FRONTAL AND LATERAL CHEST INDICATION: ARM PAIN. COMPARISON: July 13, 2019. DISCUSSION: The heart and lungs are normal in appearance. Mild chronic height loss in a couple of vertebral bodies at the thoracolumbar junction. IMPRESSION: 1. Negative exam. Srikanth Leonardo MD 06/12/20 [id number] Thank you for allowing us to participate in the care of your patient.
[2020-06-12] MEDS ORDERED: atorvaSTATin 10 MG Tab PO ONE (17:12)
[2020-06-12] MEDS ORDERED: Aspirin 81 MG Tab.Chew PO ONE (17:12)
[2020-06-12 17:24] VITALS: BP 144/90; PULSE 76
--- NOTE | 2020-06-12 17:24 | CT ---
[id number] CT/CT Head WO IV EXAM: NONCONTRAST HEAD CT INDICATION: Headache. Tongue and left arm numbness. COMPARISON: None. DISCUSSION: The ventricles and sulci are normal in size and configuration. Mild multifocal white matter hypoattenuation is nonspecific, but generally ascribed to chronic small vessel ischemia. No mass effect or midline shift. No acute hemorrhage or extra-axial fluid collection. No acute territorial infarct is identified. There are couple of opacified right ethmoid air cells. IMPRESSION: 1. No acute intracranial findings. Srikanth eLonardo MD 06/12/20 [id number] Thank you for allowing us to participate in the care of your patient.
[2020-06-12 17:29] LABS: PTT,PARTIAL THROMBOPLSTIN TIME 30.1 SEC (22.8-31.4)
[2020-06-12] MEDS ORDERED: Lidocaine 1% with EPINEPHrine 1:100,000 20 ML MDV ONE (17:55)
== END 2020-06-12 17:50 | disposition home or self-care (01) ==
LOC: KA.ED 14:56
DX: I63.9 Cerebral infarction, unspecified (principal); R79.89 Other specified abnormal findings of blood chemistry; E78.00 Pure hypercholesterolemia, unspecified; E11.9 Type 2 diabetes mellitus without complications; Z79.84 Long term (current) use of oral hypoglycemic drugs; Z79.899 Other long term (current) drug therapy
CPT/HCPCS: 36415; 70450; 71046; 80053; 82550; 82553; 83605; 84484; 85025; 85379; 85610; 85730; 93005; 96360; 96361; 99284; 99284-25; A9270-GY; J7030; U0002

== ENCOUNTER 2022-05-13 20:28 | Emergency (ER) | payer MEDICAID ==
[2022-05-13] MEDS: Carbamide Peroxide 6.5% Otic Soln 15 ML Bottle EARRT ONE (20:43)
[2022-05-13 20:58] VITALS: BP 160/104; PULSE 104
[2022-05-13] MEDS: Amoxicillin/Clavulanate K 875-125 MG Tab PO ONE (20:58)
[2022-05-13] MEDS: Ketorolac 60 MG/2 ML SDV IM ONE (20:58)
[2022-05-13] MEDS: Hydrocortisone/Neomycin/Polymyxin B Otic Susp 10 ML Bottle EARRT SCH (20:58)
[2022-05-13] MEDS: HYDROmorphone 1 MG/ML Syringe IM ONE (20:59)
== END 2022-05-13 21:24 | disposition home or self-care (01) ==
LOC: KA.ED 20:28
DX: H66.91 Otitis media, unspecified, right ear (principal); H72.91 Unspecified perforation of tympanic membrane, right ear; H61.21 Impacted cerumen, right ear; E78.00 Pure hypercholesterolemia, unspecified; E11.9 Type 2 diabetes mellitus without complications; Z79.899 Other long term (current) drug therapy; Z79.84 Long term (current) use of oral hypoglycemic drugs
CPT/HCPCS: 69209; 96372; 99282; A9270-GY; J1170; J1885

== ENCOUNTER 2025-02-14 19:34 | Emergency (ER) | payer MEDICAID ==
[2025-02-14] MEDS: Sodium Chloride 0.9% 10 ML Syringe FLUSH PRN (19:50)
[2025-02-14 20:19] LABS: BASOPHILS ABSOLUTE AUTO 0.04 10^3/uL (0.00-0.10); BASOPHILS PERCENT AUTO 0.3 % (0.0-1.0); EOSINOPHILS ABSOLUTE AUTO 0.14 10^3/uL (0.10-0.30); EOSINOPHILS PERCENT AUTO 1.1 % (1.0-3.0); HEMATOCRIT 43.2 % (40.0-52.0); HEMOGLOBIN 14.7 g/dL (13.0-17.0); IMMATURE GRAN ABSOLUTE AUTO 0.02 10^3/uL (0.00-0.04); IMMATURE GRAN PERCENT AUTO 0.2 % (0.0-0.4); LYMPHOCYTES ABSOLUTE AUTO 4.51 10^3/uL (1.00-4.00); LYMPHOCYTES PERCENT AUTO 35.7 % (20.0-40.0); MEAN CORPUSCULAR HEMOGLOBIN 31.3 pg (27.0-31.0); MEAN CORPUSCULAR VOLUME 91.9 fL (82.0-92.0); MEAN PLATELET VOLUME 9.3 fL (7.4-10.4); MONOCYTES ABSOLUTE AUTO 0.76 10^3/uL (0.10-0.80); NEUTROPHILS ABSOLUTE AUTO 7.17 10^3/uL (2.50-7.00); NEUTROPHILS PERCENT AUTO 56.7 % (50.0-70.0); PLATELET COUNT,PLT 371 10^3/uL (150-400); RED CELL DISTRIBUTION WIDTH 12.6 % (11.5-14.5); WHITE BLOOD CELL COUNT,WBC 12.64 10^3/uL (5.00-10.00)
[2025-02-14 20:35] LABS: ANION GAP 13.5 mmol/L (5-15); BLOOD UREA NITROGEN,BUN 11 mg/dL (7-18); CALCIUM 9.4 mg/dL (8.7-10.3); CARBON DIOXIDE,CO2 28.4 mmol/L (21.0-32.0); CHLORIDE,CL 101 mmol/L (98-107); CREATININE 0.83 mg/dL (0.51-1.17); ESTIMATED GFR 105 mL/min (>=60); GLUCOSE RANDOM 253 mg/dL (70-140); POTASSIUM,K 3.9 mmol/L (3.5-5.1); SODIUM,NA 139 mmol/L (136-145)
[2025-02-14] MEDS: Clopidogrel 75 MG Tab PO ONE (20:54)
[2025-02-15 02:45] VITALS: BP 161/90; PULSE 85
== END 2025-02-14 21:09 | disposition home or self-care (01) ==
LOC: KA.ED 19:34
DX: G45.9 Transient cerebral ischemic attack, unspecified (principal); E78.00 Pure hypercholesterolemia, unspecified; E11.9 Type 2 diabetes mellitus without complications; Z79.84 Long term (current) use of oral hypoglycemic drugs; Z79.82 Long term (current) use of aspirin; Z79.899 Other long term (current) drug therapy
CPT/HCPCS: 70450; 80048; 84484; 85025; 93005; 93010; 99284; 99285; A9270-GY

== ENCOUNTER 2025-02-15 07:15 | Emergency (ER) | payer MEDICAID ==
[2025-02-15 07:44] LABS: BASOPHILS ABSOLUTE AUTO 0.03 10^3/uL (0.00-0.10); BASOPHILS PERCENT AUTO 0.2 % (0.0-1.0); EOSINOPHILS ABSOLUTE AUTO 0.25 10^3/uL (0.10-0.30); EOSINOPHILS PERCENT AUTO 1.9 % (1.0-3.0); HEMATOCRIT 45.1 % (40.0-52.0); HEMOGLOBIN 15.1 g/dL (13.0-17.0); IMMATURE GRAN ABSOLUTE AUTO 0.01 10^3/uL (0.00-0.04); IMMATURE GRAN PERCENT AUTO 0.1 % (0.0-0.4); LYMPHOCYTES ABSOLUTE AUTO 4.39 10^3/uL (1.00-4.00); LYMPHOCYTES PERCENT AUTO 33.2 % (20.0-40.0); MEAN CORPUSCULAR HEMOGLOBIN 30.7 pg (27.0-31.0); MEAN CORPUSCULAR HGB CONC 33.5 g/dL (32.0-36.0); MEAN CORPUSCULAR VOLUME 91.7 fL (82.0-92.0); MEAN PLATELET VOLUME 8.9 fL (7.4-10.4); MONOCYTES ABSOLUTE AUTO 0.81 10^3/uL (0.10-0.80); MONOCYTES PERCENT AUTO 6.1 % (2.0-8.0); NEUTROPHILS ABSOLUTE AUTO 7.73 10^3/uL (2.50-7.00); NEUTROPHILS PERCENT AUTO 58.5 % (50.0-70.0); PLATELET COUNT,PLT 363 10^3/uL (150-400); RED BLOOD CELL COUNT 4.92 10^6/uL (4.50-6.00); RED CELL DISTRIBUTION WIDTH 12.6 % (11.5-14.5); WHITE BLOOD CELL COUNT,WBC 13.22 10^3/uL (5.00-10.00)
[2025-02-15 07:59] LABS: ANION GAP 13.3 mmol/L (5-15); CALCIUM 9.3 mg/dL (8.7-10.3); CARBON DIOXIDE,CO2 28.5 mmol/L (21.0-32.0); CREATININE 0.71 mg/dL (0.51-1.17); EST CRCL DRUG DOSING (CG) 139.89 mL/min; POTASSIUM,K 3.8 mmol/L (3.5-5.1)
[2025-02-15 08:26] LABS: INR 0.9 (0.9-1.1); PROTHROMBIN TIME 9.7 SEC (9.1-12.0)
[2025-02-15] MEDS: Clopidogrel 75 MG Tab PO ONE (08:54)
[2025-02-15] MEDS: Sodium Chloride 0.9% 1,000 ML IV ONE (09:13)
[2025-02-15 09:34] VITALS: BP 181/98; PULSE 79
[2025-02-15] MEDS: Iopamidol 755 Mg/ML 100 ML Bottle IV ONE (09:35)
[2025-02-15] MEDS: Sodium Chloride 0.9% 100 ML IV SCH (09:36)
== END 2025-02-15 09:38 ==
LOC: KA.ED 07:15
DX: I63.231 Cerebral infarction due to unspecified occlusion or stenosis of right carotid arteries (principal); E78.00 Pure hypercholesterolemia, unspecified; E11.9 Type 2 diabetes mellitus without complications; Z79.84 Long term (current) use of oral hypoglycemic drugs; Z79.899 Other long term (current) drug therapy; Z79.82 Long term (current) use of aspirin; Z79.02 Long term (current) use of antithrombotics/antiplatelets
CPT/HCPCS: 36415; 70450; 70496; 70498; 80048; 85025; 85610; 85730; 99285; A9270-GY; J7030; Q9967

== ENCOUNTER 2025-05-08 17:07 | Emergency (ER) | payer MEDICAID, OTHER ==
[2025-05-08] MEDS: Bacitracin/Neomycin/Polymyxin B Oint 0.9 GM U/D Packet TOP ONE (17:43)
[2025-05-08 18:49] VITALS: BP 132/86; PULSE 95
== END 2025-05-08 18:27 | disposition home or self-care (01) ==
LOC: KA.ED 17:07
DX: S61.215A Laceration without foreign body of left ring finger without damage to nail, initial encounter (principal); E78.00 Pure hypercholesterolemia, unspecified; I10 Essential (primary) hypertension; E11.9 Type 2 diabetes mellitus without complications; Z79.84 Long term (current) use of oral hypoglycemic drugs; Z79.899 Other long term (current) drug therapy; Z79.82 Long term (current) use of aspirin; Z79.02 Long term (current) use of antithrombotics/antiplatelets; Z86.73 Personal history of transient ischemic attack (TIA), and cerebral infarction without residual deficits; W26.8XXA Contact with other sharp object(s), not elsewhere classified, initial encounter; Y93.89 Activity, other specified; Y99.0 Civilian activity done for income or pay
CPT/HCPCS: 12001; 73140-F3; 96372; 99283; A9270-GY; J1171; J2003

== ENCOUNTER 2025-06-11 15:20 | Emergency (ER) | payer MEDICAID, OTHER ==
[2025-06-11] MEDS ORDERED: Naloxone 0.4 MG/ML SDV IVPUSH PRN (15:33)
[2025-06-11 16:23] VITALS: BP 160/91; PULSE 99
== END 2025-06-11 15:53 | disposition home or self-care (01) ==
LOC: KA.ED 15:20
DX: M71.161 Other infective bursitis, right knee (principal); L03.115 Cellulitis of right lower limb; L02.415 Cutaneous abscess of right lower limb; E78.00 Pure hypercholesterolemia, unspecified; I10 Essential (primary) hypertension; K21.9 Gastro-esophageal reflux disease without esophagitis; E11.9 Type 2 diabetes mellitus without complications; Z79.84 Long term (current) use of oral hypoglycemic drugs; Z79.899 Other long term (current) drug therapy; Z79.02 Long term (current) use of antithrombotics/antiplatelets; Z79.82 Long term (current) use of aspirin
CPT/HCPCS: 96372; 99283; 99284; A9270; J0690; J1171